=== PATIENT | male | born 1980 | race Caucasian/White ===

== ENCOUNTER 2019-11-24 17:10 | Outpatient (CLI) | payer BC | END 2019-11-24 17:11 | disposition home or self-care (01) | LOC: COV 17:10 | PROVIDERS: ATTEND Family Medicine | DX: Z20.828 Contact with and (suspected) exposure to other viral communicable diseases (principal) ==

== ENCOUNTER 2020-09-19 07:00 | Outpatient (CLI) | payer BC | END 2020-09-19 23:59 | disposition home or self-care (01) | LOC: COV 07:00 | PROVIDERS: ATTEND Family Medicine | DX: R07.0 Pain in throat (principal); R09.81 Nasal congestion; J34.89 Other specified disorders of nose and nasal sinuses; Z20.822 Contact with and (suspected) exposure to COVID-19 ==